=== PATIENT | female | born 1995 | race Caucasian/White ===

== ENCOUNTER 2022-02-17 04:35 | Outpatient (CLI) | payer MEDICAID ==
[~2022-02-17] VITALS: Ht 177.8 cm; Wt 162.7 kg
[2022-02-17] MEDS ORDERED: PREN-142 PO (04:47)
[2022-02-17 04:53] VITALS: BP 128/59
[2022-02-17 05:00] LABS: BILIRUBIN,URINE NEGATIVE (NEGATIVE); CLARITY,URINE CLEAR; COLOR,URINE YELLOW; GLUCOSE, URINE (UA) NEGATIVE (NEGATIVE); KETONES,URINE NEGATIVE (NEGATIVE); LEUKOCYTE ESTERASE ,URINE NEGATIVE (NEGATIVE); NITRITE,URINE NEGATIVE (NEGATIVE); PROTEIN,URINE NEGATIVE (NEGATIVE)
[2022-02-17 05:15] LABS: BACTERIA,URINE TRACE /HPF; RBC,URINE 0-2 /HPF
--- NOTE | 2022-02-18 08:26 | Physician Query-Final Dx ---
Clinic Account Progress/Dx Physician Query: Please give diagnosis Please include # weeks gestation Date of Service Feb 17, 2022 at 04:35 DEEPIKA,AprFeb 18, 2022 08:26
== END 2022-02-17 05:25 | disposition home or self-care (01) ==
LOC: WSo 04:35 → LDRP 04:36 → WSo 05:25
PROVIDERS: ATTEND Family Medicine
DX: O46.92 Antepartum hemorrhage, unspecified, second trimester (principal); Z3A.26 26 weeks gestation of pregnancy
CPT/HCPCS: 81000; 99212

== ENCOUNTER 2022-05-17 19:00 | Inpatient (IN) | payer MEDICAID ==
[2022-05-16 19:30] VITALS: BP 125/99
[~2022-05-17] VITALS: Ht 177.8 cm; Wt 168.8 kg
[~2022-05-17 19:00] MED LIST: PREN-142 PO
[2022-05-17 19:30] VITALS: BP 125/99
[2022-05-17] MEDS ORDERED: MINERAL OIL 30 ML UDC TOP PRN (19:45)
[2022-05-17] MEDS ORDERED: TERBUTALINE INJ 1 MG/ML (BRETHINE) AMP SC PRN (19:45)
[2022-05-17] MEDS ORDERED: LACTATED RINGERS 1,000 ML IV ONE (20:00)
--- NOTE | 2022-05-17 20:03 | History & Physical-OB ---
OB - Chief Complaint & HPI Date/Time Date of Admission: Date of Admission: May 17, 2022 at 19:06 Date seen by a Provider: May 17, 2022 Time Seen by a Provider: 19:45 Chief Complaint/History OB-Reason for Admission/Chief: Induction of Labor Hx : 2 Hx Para: 0 Expected Date of Delivery: May 24, 2022 Gestational Age in Weeks: 39 Gestational Age in Days: 0 Admission Nurse Assessment Rev: Yes History of Labs GBS negative Allergies and Home Medications Allergies Coded Allergies: No Known Drug Allergies (Unverified , 02/17/22) Patient Home Medication List Home Medication List Reviewed: Yes Vit No.124/Iron/FA ( Vitamin Tablet) 27 Mg Iron-800 Mcg Tablet, 1 EACH PO DAILY, (Reported) Entered as Reported by: NEYMAR NOVA on 02/17/22 0447 OB - History Hx of Present Care: Yes Ultrasounds: Normal mid trimester US Obstetrical Complications: None Medical Complications: None Patient Past Medical History No chronic medical problems Social History/Family History 2nd Hand Smoke Exposure: No OB - Admission Exam Physical Exam HEENT: Moist Membranes Heart: Rhythm Normal Lungs: Clear Abdomen: Gravid Cervical Dilatation: 1cm Membranes: Intact OB - Assessment/Plan/Diagnosis Assessment Assessment: induction of labor (At term 39 weeks) Admission Dx 1. Intrauterine at 39 weeks gestation Admission Status: Inpatient Order (span 2 midnights) Reason for Inpatient Admission: Induction of labor Plan Plan: Induction Induction Method: per Misoprostol Protocol Other Plan -patient desires epidural when in labor MALENA DIAZ MD May 17, 2022 20:03
[2022-05-17 20:19] LABS: BILIRUBIN,URINE NEGATIVE (NEGATIVE); CLARITY,URINE SL CLOUDY; COLOR,URINE YELLOW; GLUCOSE, URINE (UA) NEGATIVE (NEGATIVE); KETONES,URINE NEGATIVE (NEGATIVE); LEUKOCYTE ESTERASE ,URINE NEGATIVE (NEGATIVE); NITRITE,URINE NEGATIVE (NEGATIVE); PH,URINE 6.5 (5-9); PROTEIN,URINE NEGATIVE (NEGATIVE)
[2022-05-17 20:22] LABS: BASOPHILS # (AUTO) 0.1 10^3/uL (0.0-0.1); BASOPHILS % (AUTO) 0 % (0-10); EOSINOPHILS # (AUTO) 0.2 10^3/uL (0.0-0.3); EOSINOPHILS % (AUTO) 1 % (0-10); HEMATOCRIT 40 % (35-52); HEMOGLOBIN 13.7 g/dL (11.5-16.0); LYMPHOCYTES % (AUTO) 19 % (12-44); MEAN CORPUSCULAR HEMOGLOBIN 31 pg (25-34); MEAN CORPUSCULAR HGB CONC 34 g/dL (32-36); MEAN CORPUSCULAR VOLUME 90 fL (80-99); MEAN PLATELET VOLUME 10.5 fL (9.0-12.2); MONOCYTES # (AUTO) 0.9 10^3/uL (0.0-1.0); MONOCYTES % (AUTO) 6 % (0-12); NEUTROPHILS # (AUTO) 11.5 10^3/uL (1.8-7.8); NEUTROPHILS % (AUTO) 72 % (42-75); PLATELET COUNT 265 10^3/uL (130-400); WHITE BLOOD COUNT 15.9 10^3/uL (4.3-11.0)
[2022-05-17 20:28] LABS: SQUAMOUS EPITHELIAL CELL,UR 25-50 /HPF
[2022-05-17 20:31] LABS: AMORPHOUS SEDIMENT,UR LARGE AMOR URATES /LPF; RBC,URINE 0-2 /HPF; WBC,URINE 0-2 /HPF
[2022-05-17 20:32] LABS: BACTERIA,URINE MODERATE /HPF
[2022-05-17 21:24] LABS: ATYPICAL LYMPHOCYTES 1 %; BAND NEUTROPHILS 1 %; EOSINOPHILS % (MANUAL) 1 %; LYMPHOCYTES % (MANUAL) 24 %; MONOCYTES % (MANUAL) 7 %; NEUTROPHILS % (MANUAL) 66 %; PLATELET ESTIMATE NORMAL; RBC MORPH NORMAL
[2022-05-18] VITALS (59 sets, daily range): BP systolic 75–174; BP diastolic 54–97
[2022-05-18] MEDS: D5 LR IV SOLUTION 1,000 ML IV SCH ×3 (00:47→15:12)
[2022-05-18] MEDS ORDERED: OXYTOCIN PRE-MIX DRIP 500 ML IV SCH (08:45)
[2022-05-18] MEDS ORDERED: BUTORPHANOL INJ 2 MG/ML (STADOL) VIAL ONE (11:29)
[2022-05-18] MEDS ORDERED: ONDANSETRON 4 MG/2 ML (SDV) Z0FRAN ONE (11:29)
[2022-05-18] MEDS ORDERED: BUTORPHANOL INJ 2 MG/ML (STADOL) VIAL IV PRN (11:30)
[2022-05-18] MEDS ORDERED: ONDANSETRON 4 MG/2 ML (SDV) Z0FRAN IVP PRN ×2 (11:30→19:45)
[2022-05-18] MEDS: CATHETER FLUSH 10 ML SYR IV SCH ×2 (11:35→16:56)
[2022-05-18] MEDS ORDERED: fentaNYL 2 mcg/ml BUPIVA 0.125 100 ML ONE (13:15)
[2022-05-18] MEDS ORDERED: fentaNYL INJ 100 MCG/2 ML AMP ONE ×2 (13:16→19:15)
[2022-05-18] MEDS ORDERED: LIDOCAINE PF 2% 5 ML (XYLOCAINE) VIAL ONE ×2 (13:16→19:15)
[2022-05-18] MEDS: fentaNYL 2 mcg/ml BUPIVA 0.125 100 ML EPI SCH (13:58)
[2022-05-18] MEDS ORDERED: diphenhydrAMINE 50 MG/ML INJ (BENADRYL) IV PRN (14:15)
[2022-05-18] MEDS ORDERED: NALOXONE 0.4 MG/ML 1 ML (NARCAN) VIAL IV PRN ×3 (14:15→19:45)
[2022-05-18] MEDS ORDERED: ONDANSETRON 4 MG/2 ML (SDV) Z0FRAN IV PRN (14:15)
[2022-05-18] MEDS ORDERED: METOCLOPRAMIDE INJ 10 MG/2 ML (REGLAN) IV PRN (14:15)
[2022-05-18] MEDS ORDERED: LACTATED RINGERS 1,000 ML IV SCH (14:15)
--- NOTE | 2022-05-18 16:35 | Labor Progress Note ---
Labor Progress Note Labor Progress Note Date Seen by Provider: May 18, 2022 Time Seen by Provider: 16:30 Subjective: Pt denies complaint now that epidural in. Objective: Cervical exam: 4 Consistency: soft Position: anterior heart tones: 140 beats per minute, good variability, reactive Tocometer:4 ctx/10 minutes Assessment/Plan: Elizabeth Hernandez is a (27 /Para 2 / 0,Gestational Age (wks)39 here for []. CEFM/TOCO Continue pitocin Anesthesia: epidural Continuing to monitor for progression of dilation. Vitals - Labs Vital Signs - I&O Vital Signs Date Time Temp Pulse Resp B/P (MAP) Pulse Ox O2 Delivery O2 Flow Rate FiO2 05/18/22 14:15 75 18 136/60 (85) 97 Room Air 05/18/22 14:10 83 18 98/54 (69) 98 Room Air 05/18/22 14:05 94 18 102/55 (71) 98 Room Air 05/18/22 14:00 90 18 102/54 (70) 97 Room Air 05/18/22 13:55 75 18 132/58 (82) 97 Room Air 05/18/22 13:45 53 18 132/72 (92) 98 Room Air 05/18/22 13:40 62 18 129/63 (85) 97 Room Air 05/18/22 13:35 64 18 146/70 (95) 91 Room Air 05/18/22 13:30 54 18 173/77 (109) Room Air 05/18/22 13:15 18 Room Air 05/18/22 13:00 62 18 133/71 (91) Room Air 05/18/22 12:45 54 18 140/86 (104) Room Air 05/18/22 12:30 35.3 69 18 139/75 (96) Room Air 05/18/22 12:15 70 18 142/85 (104) Room Air 05/18/22 12:00 64 18 143/84 (103) Room Air 05/18/22 11:45 63 18 144/79 (100) Room Air 05/18/22 11:30 55 18 139/65 (89) Room Air 05/18/22 11:15 92 18 133/57 (82) Room Air 05/18/22 11:00 56 18 135/75 (95) Room Air 05/18/22 10:45 67 18 174/97 (122) Room Air 05/18/22 10:30 77 18 120/59 (79) Room Air 05/18/22 10:15 67 18 150/69 (96) Room Air 05/18/22 10:00 36.3 70 18 143/70 (94) Room Air 05/18/22 09:45 55 18 144/70 (94) Room Air 05/18/22 09:30 70 18 129/82 (98) Room Air 05/18/22 09:15 78 18 150/89 (109) Room Air 05/18/22 09:00 36.3 71 18 157/79 (105) Room Air 05/18/22 08:30 18 Room Air 05/18/22 08:00 60 18 163/93 (116) Room Air 05/18/22 07:30 76 18 157/93 (114) Room Air 05/18/22 07:15 58 18 115/62 (79) Room Air 05/18/22 06:45 71 18 141/78 (99) Room Air 05/18/22 06:15 35.9 71 18 139/86 (103) Room Air 05/17/22 19:30 36.4 96 18 97 Room Air 05/17/22 19:30 36.4 96 18 125/99 (108) 97 Room Air I & O 05/18/22 07:00 Intake Total 1000 ml Balance 1000 ml Labs Laboratory Tests 05/17/22 19:15: Urine Color YELLOW, Urine Clarity SL CLOUDY, Urine pH 6.5, Urine Specific Odem 1.025H, Urine Protein NEGATIVE, Urine Glucose (UA) NEGATIVE, Urine Ketones NEGATIVE, Urine Nitrite NEGATIVE, Urine Bilirubin NEGATIVE, Urine Urobilinogen 0.2, Urine Leukocyte Esterase NEGATIVE, Urine RBC (Auto) NEGATIVE, Urine RBC 0-2, Urine WBC 0-2, Urine Squamous Epithelial Cells 25-50H, Urine Crystals PRESENTH, Urine Amorphous Sediment LARGE MOISÉS URATESH, Urine Bacteria MODERATEH, Urine Casts NONE, Urine Mucus NEGATIVE, Urine Culture Indicated NO 05/17/22 19:55: White Blood Count 15.9H, Red Blood Count 4.42, Hemoglobin 13.7, Hematocrit 40, Mean Corpuscular Volume 90, Mean Corpuscular Hemoglobin 31, Mean Corpuscular Hemoglobin Concent 34, Red Cell Distribution Width 13.2, Platelet Count 265, Mean Platelet Volume 10.5, Immature Granulocyte % (Auto) 2, Neutrophils (%) (Auto) 72, Lymphocytes (%) (Auto) 19, Monocytes (%) (Auto) 6, Eosinophils (%) (Auto) 1, Basophils (%) (Auto) 0, Neutrophils # (Auto) 11.5H, Lymphocytes # (Auto) 3.0, Monocytes # (Auto) 0.9, Eosinophils # (Auto) 0.2, Basophils # (Auto) 0.1, Immature Granulocyte # (Auto) 0.2H, Neutrophils % (Manual) 66, Lymphocytes % (Manual) 24, Monocytes % (Manual) 7, Eosinophils % (Manual) 1, Band Neutrophils 1, Atypical Lymphocytes 1, Platelet Estimate NORMAL, Blood Morphology Comment NORMAL MALENA DIAZ MD May 18, 2022 16:35
[2022-05-18] MEDS ORDERED: METOCLOPRAMIDE INJ 10 MG/2 ML (REGLAN) IV ONE (18:45)
[2022-05-18] MEDS ORDERED: FAMOTIDINE 20MG/2ML IV (PEPCID) IV ONE (18:45)
[2022-05-18] MEDS ORDERED: CITRIC ACID/SOB CIT (BICITRA) 30 ML UDC PO ONE (18:45)
[2022-05-18] MEDS ORDERED: LACTATED RINGERS 1,000 ML IV PRN (18:45)
[2022-05-18] MEDS ORDERED: FAMOTIDINE 20MG/2ML IV (PEPCID) ONE (18:48)
[2022-05-18] MEDS ORDERED: CITRIC ACID/SOB CIT (BICITRA) 30 ML UDC ONE (18:48)
[2022-05-18] MEDS ORDERED: BUPIVACAINE 0.25% 10 ML (SENSORCAINE) VIAL ONE (19:15)
[2022-05-18] MEDS ORDERED: ceFAZolin INJECTION 2,000 MG ONE (19:21)
[2022-05-18] MEDS ORDERED: NS (IVPB) 50 ML ONE (19:22)
[2022-05-18] MEDS ORDERED: OXYTOCIN PRE-MIX DRIP 500 ML IV ONE (19:23)
[2022-05-18] MEDS ORDERED: ceFAZolin INJECTION 2,000 MG in NS (IVPB) 50 ML IV ONE (19:30)
--- NOTE | 2022-05-18 19:38 | Progress Note-Pre Operative ---
Pre-Operative Progress Note Date of Available H&P: May 18, 2022 Date H&P Reviewed: May 18, 2022 Time H&P Reviewed: 19:15 History & Physical: H&P Reviewed, Patient Examed, Changes noted below Changes from last HP Patient has not made cervical change for 4 hours, due to failure to progress decision made to proceed with PLTCS. Risk reviewed with patient bedside and consent obtained. Pre-Operative Diagnosis: Failure to progress, 39 week IUP EDWARDO STOREY DO May 18, 2022 19:38
[2022-05-18] MEDS ORDERED: TETANUS,DIPTH,PERTUSS P/F (BOOSTRIX) 0.5 ML VIAL IM SCH (19:45)
[2022-05-18] MEDS ORDERED: MEASLES,MUMPS,RUBELLA 1 EA INJ SC SCH (19:45)
[2022-05-18] MEDS: KETOROLAC 30 MG/ML VIAL IV SCH (22:44)
[2022-05-18] MEDS: DOCUSATE SODIUM 100 MG (COLACE) CAP PO SCH (22:44)
[2022-05-18] MEDS: OXYTOCIN PRE-MIX DRIP 500 ML IV SCH (22:45)
[2022-05-19] MEDS: CATHETER FLUSH 10 ML SYR IV SCH ×4 (00:34→06:38)
[2022-05-19] MEDS: D5 LR IV SOLUTION 1,000 ML IV SCH ×2 (00:36→03:51)
[2022-05-19] MEDS: fentaNYL 2 mcg/ml BUPIVA 0.125 100 ML EPI SCH ×2 (00:37→06:59)
[2022-05-19] MEDS: OXYTOCIN PRE-MIX DRIP 500 ML IV SCH (00:38)
[2022-05-19] MEDS: HYDROcodone/APAP 5 MG/325 MG (LORTAB) TAB PO PRN ×3 (01:58→23:50)
[2022-05-19 02:00] VITALS: BP 140/78
--- NOTE | 2022-05-19 03:42 | OPERATIVE REPORT ---
PREOPERATIVE DIAGNOSES: 1. A 27-year-old at 31 weeks gestation. 2. Arrest of dilatation and failure to progress. POSTOPERATIVE DIAGNOSES: 1. A 27-year-old at 31 weeks gestation. 2. Arrest of dilatation and failure to progress. PROCEDURE: Primary low transverse section. SURGEON: Reinaldo Gray DO CATERING [place]: Dr. David Bull, who was necessary for manipulation and retraction throughout the procedure. ANESTHESIA: Epidural, which was bolused. ESTIMATED BLOOD LOSS: 200 mL. URINE OUTPUT: 250 mL, clear at the end of the procedure. FLUIDS: 1400 mL of lactated Ringer's solution. FINDINGS: A live male infant, weight pending, Apgars of 8 and 9. Grossly normal appearing uterus. Bilateral fallopian tubes and ovaries. SPECIMENS SENT: Placenta. INDICATIONS FOR PROCEDURE: This 27-year-old female with a patient that was admitted by Dr. Bull for induction of labor at 39 weeks. She did not progress past 4 cm, despite adequate contraction pattern and time to make cervical change. Due to arrest of dilatation, Dr. Bull contacted me to proceed with primary . Risks of the procedure were discussed with the patient in detail at bedside. After all of her questions were answered, she was agreeable to proceed. Consent was obtained. The patient was taken to the operating room. DESCRIPTION IN DETAIL: In the operating Room, epidural analgesia was bolused and found to be adequate. She was placed in the supine position with leftward tilt, prepped and draped in normal sterile fashion. A timeout was performed. Anesthesia was tested to make a Pfannenstiel skin incision with a knife and carried to underlying fascia using Bovie cautery. The fascial incision extended laterally using Bovie cautery. Superior aspect of the fascial incision was then grasped with Rosalinda clamps and sharply dissected off the rectus muscles. The inferior aspect of the fascial incision was then grasped with Rosalinda clamps, tented upward, and dissected off the underlying rectus muscles. The rectus muscle was dissected down in the midline sharply, which exposed the peritoneum, which I entered bluntly and extended using blunt traction. An Tai ring retractor was placed in the peritoneal incision, which offers excellent lateral sidewall retraction. I identified the lower uterine segment, which was found to be thinned out and make a low transverse incision to the vesicouterine peritoneum and bluntly dissected off the lower uterine segment, creating a bladder flap. I then proceeded by myotomy until membranes were visualized, at which point I extended the uterine incision laterally and superiorly using Espinosa scissors. Clear fluid was noted through the myotomy site. The was found in vertex presentation. With gentle fundal pressure, the infant's head was elevated up into the incision, where it was delivered through the incision. The nares and oropharynx were bulb suctioned. Anterior and posterior shoulders were delivered and the was brought to the operative field, where the cord was doubly clamped and cut and the was handed off to waiting nurses in attendance. Cord blood was collected. Three-vessel cord with intact placenta delivered spontaneously thereafter. IV Pitocin is initiated to facilitate uterine contraction. Uterine fundus confirmed by manual massage. The uterus was then exteriorized and cleared of all endometrial clots and debris. I then proceeded with closing the uterine incision using 0 Vicryl suture in a running locked fashion. Second layer of imbricating 0 Monocryl was placed. Excellent hemostasis was noted after doing this. I then placed the uterus back in the pelvis and copiously irrigated the pelvis using normal saline. Once again, there was no active bleeding noted from any of my dissection planes. I placed Interceed antiadhesive over my low transverse incision. I removed the Tai ring retractor and then proceeded with closing the peritoneum using 3-0 Vicryl suture in running fashion. Rectus muscles reapproximated using 3-0 Vicryl suture in interrupted fashion. The fascia was reapproximated using 0 Vicryl suture in a running fashion. Subcutaneous tissue was reapproximated using 3-0 plain interrupted subcutaneous stitch and skin reapproximated using 4-0 Monocryl in a running subcuticular. Dermabond was applied to incision and sterile dressing with adhesive white tape. The patient tolerated the procedure well and sent to recovery area in stable condition. Lap and sponge counts were correct at the end of procedure. Instrument counts correct as well. Two grams of Ancef given preoperatively for infection prophylaxis. Job ID: [id number] DocumentID: [id number] Dictated Date: 05/18/2022 20:20:21 Creative Services Designer Date: 05/19/2022 03:40:00 Dictated By: DO BETI FRASER
[2022-05-19 05:00] VITALS: BP 139/74
[2022-05-19] MEDS: KETOROLAC 30 MG/ML VIAL IV SCH (05:34)
[2022-05-19 05:42] LABS: BASOPHILS % (AUTO) 0 % (0-10); EOSINOPHILS # (AUTO) 0.1 10^3/uL (0.0-0.3); EOSINOPHILS % (AUTO) 1 % (0-10); HEMATOCRIT 35 % (35-52); HEMOGLOBIN 11.5 g/dL (11.5-16.0); LYMPHOCYTES # (AUTO) 2.1 10^3/uL (1.0-4.0); LYMPHOCYTES % (AUTO) 15 % (12-44); MEAN CORPUSCULAR HEMOGLOBIN 30 pg (25-34); MEAN CORPUSCULAR HGB CONC 33 g/dL (32-36); MEAN CORPUSCULAR VOLUME 92 fL (80-99); MEAN PLATELET VOLUME 10.4 fL (9.0-12.2); MONOCYTES % (AUTO) 7 % (0-12); NEUTROPHILS # (AUTO) 10.5 10^3/uL (1.8-7.8); NEUTROPHILS % (AUTO) 76 % (42-75); PLATELET COUNT 194 10^3/uL (130-400); WHITE BLOOD COUNT 13.8 10^3/uL (4.3-11.0)
[2022-05-19 08:15] VITALS: BP 137/95
[2022-05-19] MEDS: DOCUSATE SODIUM 100 MG (COLACE) CAP PO SCH ×2 (08:20→20:46)
--- NOTE | 2022-05-19 09:58 | Anesthesia-Regional Post-Op ---
Regional Patient Condition Mental Status: Alert, Oriented x3 Circulation: Same as Pre-Op Headache: Absent Sensation: Full Recovery Motor Block: Absent Post Op Complications Complications None Follow Up Care/Instructions Patient Instructions None needed. Anesthesia/Patient Condition Patient is doing well, no complaints, stable vital signs, no apparent adverse anesthesia problems. No complications reported per nursing. NORA YANES CRNA May 19, 2022 09:58
[2022-05-19] MEDS ORDERED: IBUPROFEN 600 MG (MOTRIN) TAB PO ONE ×2 (12:00→17:38)
[2022-05-19] MEDS: IBUPROFEN 600 MG (MOTRIN) TAB PO SCH ×3 (12:01→23:50)
[2022-05-19 12:30] VITALS: BP 162/92
--- NOTE | 2022-05-19 13:09 | Postpartum Progress Note ---
Note Note Day # 1 Subjective: Patient is without complaints. Ambulating, voiding. Tolerating a regular diet without nausea or vomiting. Normal lochia. Pain is well controlled with oral pain medications. Physical Exam: General - Alert and oriented, no apparent distress Abdomen - Soft, appropriately tender to palpation, non-distended, fundus firm at umbilicus; incision c/d/i Extremities - no edema, negative Markus's bilaterally Assessment: Post- day # 1, status post PLTCS d/t failure to progress Recovering well, hemodynamically stable Acute blood loss anemia Plan: Routine care. Encourage breast feeding. Encourage ambulation. Ferrous sulfate supplementation. Plan for discharge tomorrow Vitals - Labs Vital Signs - I&O Vital Signs Date Time Temp Pulse Resp B/P (MAP) Pulse Ox O2 Delivery O2 Flow Rate FiO2 05/19/22 08:15 36.5 87 18 137/95 (109) 97 Room Air 05/19/22 05:00 36.6 73 18 139/74 (95) 96 Room Air 05/19/22 02:00 36.3 89 18 140/78 (98) 96 Room Air 05/18/22 22:30 37.2 83 18 157/76 (103) 98 Room Air 05/18/22 22:00 37.0 86 18 142/76 (98) 98 Room Air 05/18/22 21:23 36.5 18 148/68 (94) 97 Room Air 05/18/22 21:23 Room Air 05/18/22 21:15 36.5 18 131/80 (97) 97 Room Air 05/18/22 21:08 Room Air 05/18/22 21:05 36.5 18 138/84 (102) 97 Room Air 05/18/22 20:53 Room Air 05/18/22 20:51 36.5 18 140/74 (96) 98 Room Air 05/18/22 20:38 Room Air 05/18/22 20:35 36.0 18 133/76 (95) 98 Room Air 05/18/22 20:23 Room Air 05/18/22 19:00 79 18 75/79 (78) 98 Room Air 05/18/22 18:45 84 18 136/79 (98) 99 Room Air 05/18/22 18:30 76 18 139/74 (95) 96 Room Air 05/18/22 18:15 57 18 139/75 (96) 97 Room Air 05/18/22 18:00 60 18 133/65 (87) 98 Room Air 05/18/22 17:45 36.4 54 18 112/65 (81) 96 Room Air 05/18/22 17:30 54 18 110/55 (73) 97 Room Air 05/18/22 17:15 51 18 121/60 (80) 100 Room Air 05/18/22 17:00 73 18 157/74 (101) 98 Room Air 05/18/22 16:45 67 18 142/66 (91) 99 Room Air 05/18/22 16:30 62 18 136/75 (95) 99 Room Air 05/18/22 16:15 62 18 136/75 (95) 99 Room Air 05/18/22 16:00 62 18 136/78 (97) 100 Room Air 05/18/22 15:45 60 18 140/78 (98) 96 Room Air 05/18/22 15:30 61 18 135/75 (95) 97 Room Air 05/18/22 15:15 69 18 130/68 (88) 97 Room Air 05/18/22 15:10 35.8 05/18/22 15:00 61 18 137/75 (95) 99 Room Air 05/18/22 14:45 62 18 128/60 (82) 99 Room Air 05/18/22 14:30 66 18 126/54 (78) 97 Room Air 05/18/22 14:25 57 18 125/58 (80) 97 Room Air 05/18/22 14:20 77 18 100/64 (76) 96 Room Air 05/18/22 14:15 75 18 136/60 (85) 97 Room Air 05/18/22 14:10 83 18 98/54 (69) 98 Room Air 05/18/22 14:05 94 18 102/55 (71) 98 Room Air 05/18/22 14:00 90 18 102/54 (70) 97 Room Air 05/18/22 13:55 75 18 132/58 (82) 97 Room Air 05/18/22 13:45 53 18 132/72 (92) 98 Room Air 05/18/22 13:40 62 18 129/63 (85) 97 Room Air 05/18/22 13:35 64 18 146/70 (95) 91 Room Air 05/18/22 13:30 54 18 173/77 (109) Room Air 05/18/22 13:15 18 Room Air I & O 05/19/22 07:00 Intake Total 2050 ml Output Total 250 ml Balance 1800 ml Labs Laboratory Tests 05/19/22 05:26: White Blood Count 13.8H, Red Blood Count 3.78L, Hemoglobin 11.5, Hematocrit 35, Mean Corpuscular Volume 92, Mean Corpuscular Hemoglobin 30, Mean Corpuscular Hemoglobin Concent 33, Red Cell Distribution Width 13.4, Platelet Count 194, Mean Platelet Volume 10.4, Immature Granulocyte % (Auto) 1, Neutrophils (%) (Auto) 76H, Lymphocytes (%) (Auto) 15, Monocytes (%) (Auto) 7, Eosinophils (%) (Auto) 1, Basophils (%) (Auto) 0, Neutrophils # (Auto) 10.5H, Lymphocytes # (Au to) 2.1, Monocytes # (Auto) 1.0, Eosinophils # (Auto) 0.1, Basophils # (Auto) 0.0, Immature Granulocyte # (Auto) 0.1 JERRICA PRINCE MAILING SPECIALIST May 19, 2022 13:09
[2022-05-19 18:26] VITALS: BP 137/60
[2022-05-19 23:51] VITALS: BP 129/70
[2022-05-20 05:45] VITALS: BP 127/67
[2022-05-20] MEDS: IBUPROFEN 600 MG (MOTRIN) TAB PO SCH ×2 (05:46→12:09)
[2022-05-20 08:00] VITALS: BP 122/56
[2022-05-20] MEDS: DOCUSATE SODIUM 100 MG (COLACE) CAP PO SCH (09:22)
[2022-05-20] MEDS: HYDROcodone/APAP 5 MG/325 MG (LORTAB) TAB PO PRN (09:23)
[2022-05-20] MEDS ORDERED: IBUP-844 PO (10:03)
[2022-05-20] MEDS ORDERED: ACHD5005 PO (10:03)
[2022-05-20] MEDS ORDERED: DOCU100C37 PO (10:03)
--- NOTE | 2022-05-20 10:05 | Discharge Inst-Women's Service ---
Discharge Inst-Women's Serv Depart Medication/Instructions New, Converted or Re-Newed RX: Transmitted to Pharmacy Consults/Follow Up Additional Follow Up: Yes (1wk incision check francine/Marina or Kellee; 6wk PP appt w/Jorgito) Activity Activity: Activity as Tolerated Driving Instructions: No Driving for 1 Week NO SMOKING: NO SMOKING Nothing Inside Vagina: No Douching, No [place], No Tampons Diet Discharge Diet: No Restrictions Symptoms to Report to DrAri: Pain Increased, Fever Over 101 Degrees F, Vaginal Bleeding Increase For Any Problems or Questions: Contact Your Physician Skin/Wound Care Infection Signs and Symptoms: Increased Redness, Foul Odor of Wound, Increased Drainage, Temperature Above 101 F Operative Area Clean and Dry: Keep Incision Clean/Dry Stitches/Castor/Dermabond: Dermabond Bathing Instructions: KELLEE Trammell APRN May 20, 2022 10:05
--- NOTE | 2022-05-20 10:09 | Postpartum Progress Note ---
Note Note Day # 2 Subjective: Patient is without complaints. Ambulating, voiding. Tolerating a regular diet without nausea or vomiting. Normal lochia. Pain is well controlled with oral pain medications. Physical Exam: General - Alert and oriented, no apparent distress Abdomen - Soft, appropriately tender to palpation, non-distended, fundus firm at umbilicus; incision c/d/i Extremities - no edema, negative Markus's bilaterally Assessment: Post- day # 2, status post PLTCS Recovering well, hemodynamically stable Acute blood loss anemia Plan: Routine care. Encourage breast feeding. Encourage ambulation. Ferrous sulfate supplementation. Plan for discharge today Vitals - Labs Vital Signs - I&O Vital Signs Date Time Temp Pulse Resp B/P (MAP) Pulse Ox O2 Delivery O2 Flow Rate FiO2 05/20/22 05:45 36.0 76 16 127/67 (87) 97 Room Air 05/19/22 23:51 36.5 82 18 129/70 (89) 97 Room Air 05/19/22 18:26 137/60 (85) 05/19/22 17:40 36.0 87 18 98 Room Air 05/19/22 12:30 36.2 89 18 162/92 (115) 97 Room Air I & O 05/20/22 07:00 Intake Total 1500 ml Balance 1500 ml JERRICA PRINCE DOCUMENT IMAGE TECHNICIAN May 20, 2022 10:09
[2022-05-20 12:00] VITALS: BP 133/68
[2022-05-20 12:30] VITALS: BP 133/68
== END 2022-05-20 12:30 | disposition home or self-care (01) | DRG 787 ==
LOC: LDRP 19:06
PROVIDERS: ADMIT Family Medicine; ATTEND Family Medicine
PROC: 3E0DXGC Introduction of Other Therapeutic Substance into Mouth and Pharynx, External Approach (ICD-10-PCS; 2022-05-17)
PROC: 10D00Z1 Extraction of Products of Conception, Low, Open Approach (ICD-10-PCS; principal; 2022-05-18 19:28)
DX: O62.1 Secondary uterine inertia (principal); D62 Acute posthemorrhagic anemia; O32.4XX0 Maternal care for high head at term, not applicable or unspecified; O90.81 Anemia of the puerperium; Z37.0 Single live birth; Z3A.39 39 weeks gestation of pregnancy
CPT/HCPCS: 36415; 81000; 85007; 85025; 85027; 86780; 86850; 86900; 86901; 94664